=== PATIENT | male | born 1940 | race Caucasian/White ===

== ENCOUNTER → 2020-10-04 11:03 | Outpatient (CLI) | payer MEDICARE, BC, SELFPAY ==
--- NOTE | 2020-10-04 | DI.RAD.S_ITS ---
PROCEDURE: [place] WRIST INJECTION MR/CT RT INDICATIONS: RIGHT WRIST PAIN COMPARISON: [facility] [place], [place], XR WRIST 3+ VIEWS RIGHT, 09/20/2020, 13:58. TECHNIQUE: After informed consent had been obtained, the wrist was examined fluoroscopically, and a site chosen for injection of the radiocarpal compartment from a dorsal approach. Skin was prepped and draped in a sterile fashion and 1% lidocaine infiltrated from the skin down to the articular surface. A hypodermic needle was then introduced into the articular space and a modest amount of contrast medium was instilled confirming intra-articular needle tip placement. This was followed by approximately 4 mL of a dilute gadolinium solution. Needle was removed and dressing was applied. The patient experienced no complications throughout the procedure and left the fluoroscopic suite in no apparent distress. FINDINGS: A single fluoroscopic spot image demonstrates intra-articular location to injected iodinated contrast. IMPRESSION: Successful fluoroscopic-guided administration of dilute Gadolinium solution for wrist MR arthrogram. Dictated by: Jasvir Oh M.D. on 10/04/2020 at 12:37 Approved by: Jasvir Oh M.D. on 10/04/2020 at 12:37
--- NOTE | 2020-10-04 | DI.MRI.S_ITS ---
PROCEDURE: MR WRIST RT W CON INDICATIONS: RIGHT WRIST PAIN TECHNIQUE: After the administration of 3-4 mL of dilute intra-articular Gadolinium contrast into the radiocarpal compartment, coronal T1 spin echo with fat saturation and T2 fast spin echo with fat saturation, axial T1 spin echo and T2 fast spin echo with fat saturation, sagittal T1 spin echo with and without fat saturation through the wrist. COMPARISON: [facility], CR, XR WRIST 3+ VIEWS RIGHT, 05/08/2020, 15:07. [facility], CR, XR WRIST 3+ VIEWS RIGHT, 09/20/2020, 13:58. [facility], [place], [place] WRIST INJECTION MR/CT RT, 10/04/2020, 11:42. FINDINGS: Image quality: Excellent. Bones and cartilage: Widening of the scapholunate interval is seen measuring up to 4 mm. There is mild dorsal tilting of the lunate. No proximal migration of the capitate is seen. There is mild edema within the volar aspect of the triquetrum, which may be related to subacute to chronic trabecular bone injury or chronic pisotriquetral degenerative changes. A type 2 lunate is seen without significant degenerative changes at the hamatolunate articulation. Degenerative subchondral cystic changes are seen at the triscaphe joint. Carpal ligaments: There is complete tearing of the scapholunate ligament including the dorsal and membranous, and likely the volar components. Radiocarpal contrast material is seen extending through the defect into the midcarpal joint. The lunotriquetral ligament appears to be intact. Triangular fibrocartilage complex: There is focal perforation of the central triangle fibrocartilage disc, which is most likely degenerative. Radiocarpal contrast material communicates with the distal radial ulnar joint space. Tendons and soft tissues: The carpal tunnel structures appear normal, including the median nerve. The ulnar nerve appears normal within Guyon's canal. There is moderate extensor carpi ulnaris tendinosis. The remaining extensor tendon compartments demonstrate normal morphology. IMPRESSION: 1. Complete tearing of the scapholunate ligament with widening of the scapholunate interval to 4 mm. 2. 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 No proximal migration of the capitate is seen. 3. Small full-thickness perforation of the triangle fibrocartilage disc, which is most likely degenerative. 4. Moderate extensor carpi ulnaris tendinosis. 5. Mild triscaphe joint osteoarthrosis. Dictated by: Viktor Milligan M.D. on 10/04/2020 at 15:29 Approved by: Viktor Milligan M.D. on 10/04/2020 at 15:37
== END ==
PROVIDERS: PCP Family Medicine; Referring Provider Orthopaedic Surgery; Visit Provider Orthopaedic Surgery
DX: M25.531 Pain in right wrist (principal); S63.591A Other specified sprain of right wrist, initial encounter; M19.031 Primary osteoarthritis, right wrist
CPT/HCPCS: 20605; 73222; 77002

== ENCOUNTER → 2020-10-26 10:10 | Outpatient (CLI) | payer MEDICARE, BC, SELFPAY ==
[2020-10-26 12:18] LABS: COVID19 -Nasal RAPID Negative (Negative)
== END ==
PROVIDERS: PCP Family Medicine; Visit Provider Physician Assistant
DX: Z01.812 Encounter for preprocedural laboratory examination (principal); Z20.822 Contact with and (suspected) exposure to COVID-19
CPT/HCPCS: 87635; C9803

== ENCOUNTER 2020-10-27 08:54 | Day surgery (SDC) | payer MEDICARE, BC, SELFPAY ==
[2020-10-21 11:51] VITALS: BMI 28.8
[2020-10-27] VITALS (8 sets, daily range): BP systolic 103–126; BP diastolic 59–77; PULSE 73–85; RESP 10–16; TEMP 36.3–36.8; O2SAT 97–99; BMI 28.8
[2020-10-27] MEDS: LACTATED RINGERS 1,000 ML 100 ML IV (09:33)
--- NOTE | 2020-10-27 11:32 | PM.PREOP ---
Pre-operative Note Interval Note History & Physical reviewed/Exam performed by Physician: Yes Changes to H&P: No
[2020-10-27] MEDS: CEFAZOLIN 1 GM VIAL 2 GM IV (12:00)
--- NOTE | 2020-10-27 12:09 | SUR.OPER ---
Supine on padded OR bed, head on pillow, left arm secured on padded arm boards at <90 degrees abduction,right arm draped free on black arm table, legs uncrossed, safety belt at thigh, tape over blanket over lower legs.
[2020-10-27] MEDS: BUPIVACAINE 0.25% W/ EPI 30 ML VIAL INJ (12:33)
--- NOTE | 2020-10-27 14:06 | SUR.PHASEI ---
Pt transferred to OPD with handoff to Zeynep NOEL. Pt alert, oriented. Arm elevated. Call light in reach, bed in low position.
--- NOTE | 2020-11-10 07:36 | PM.OP.1 ---
Operative Date/Time/Diagnoses Date of procedure: 10/27/20 Pre-op diagnosis: Right carpal tunnel, right scapholunate ligament rupture Post-op diagnosis: same Procedure & Clinicians Procedure: Right carpal tunnel release, right scapholunate ligament reconstruction Same procedure as scheduled: Yes Indications: Right carpal tunnel, right scapholunate ligament rupture Surgeon: Jordin Partida Click Yes if Unassisted: Yes Anesthesia Type: General Operative Notes Findings: Complete rupture of the scapholunate ligament compression of the median nerve at the carpal tunnel Closure Type: primary Estimated Blood Loss (mL): 5 Procedure in detail: On date of service, patient was met in the holding area where his operative site was signed and witnessed by the OR staff. The surgery is once again discussed with the patient in remaining questions or concerns he had were answered fully. Patient was taken back to the operating theater and placed on the operating table in a supine position. Great care was taken to ensure that all bony prominences were appropriately padded. A well-padded tourniquet was placed up along the upper extremity. Time-out was performed verifying patient's name, procedure, and operative site. The limb was prepped and draped in the normal sterile fashion. An Esmarch was used to exsanguinate the limb the tourniquet was turned up to 250 mm of mercury. Longitudinal incision was made. The incision was ulnar to the Elvin's tubercle. It was centered over the radiocarpal joint. Fifteen blade was used to incise through skin and fascial tissue. Sharp dissection was continued with a 15 blade until the extensor mechanism was identified. Branches of the superficial radial nerve were identified and protected as well as branches coming off ulnarly. Once we had the extensor mechanism identified and was split allowing a release of the EPL tendon. This was also done ulnarly opening up 4th extensor compartment and then done radially opening up the 2nd extensor compartment. This allowed us to retract the extensor tendons. We next took a small strip of tendon tissue from the ECR be which was then whip stitched and then set aside to be used later. Next, the radiocarpal joint was opened preserving the carpal ligaments. This gave us good visualization of the scapholunate interval. There was a complete rupture to the scapholunate ligament. But no sign of any radiocarpal arthritic process. K-wire was placed in to the scaphoid and 1 into the lunate and the scapholunate interval was reduced. There was quite a bit of flexion of the scaphoid which was reduced as well as extension of the lunate. These 2 K-wires were then held together to close down any diastasis. Another K-wire was placed between the scaphoid and the capitate to keep it from falling back into flexion. Next, 3 guidewires were placed 1 in the lunate and 2 in the scaphoid 1 by the scapholunate interval and then 1 very distally. C-arm used to verify reduction of the scapholunate interval as well as guidewire positioning. Once we were satisfied with the positioning cannulated drill was used to drill over the 3 guidewires. The bony hole tunnels were then copiously irrigated removing any remaining tissue. We then turned our attention back to our tendon graft. This plus suture tape was tenodesed into the 1st hole in the scaphoid. Then under tension this was then placed into the 2nd hole into the lunate going across the scapholunate interval 18 OD seen the attendant as well as the graft providing a solid repair of the scapholunate interval. Next, the tendon and suture material were then brought up to the distal hole into the scaphoid and retain noticed there to once again help keep the scaphoid from falling into flexion. C-arm was brought in to verify maintenance of reduction. The 2 reducing K-wires were removed and there was no gapping at the scapholunate interval once those K-wires were removed. We were able to flex and extend the wrist with no abnormal motion of the scapholunate interval been no sign of any diastasis. Good signs of a solid repair of the scapholunate interval. The wound was then copiously irrigated. The capsule was closed and repaired using 3-0 FiberWire. The extensor mechanism was closed with Vicryl recreating the 4th extensor compartment as well as the 3rd and 2nd extensor compartments. We turned our attention to the carpal tunnel. A 15 blade was used to incise through skin In the center of the palm. Pickups and tenotomy scissors were used to dissect down until the palmar fascia was visualized. The palmar fascia was then sharply incised using a 15 blade. This gave us good visualization of the carpal ligament. A small opening was made into the carpal ligament, and a curved hemostat was placed into that opening. A 15 blade was then used to sharply incise the carpal ligament with the structures beneath being protected by the hemostat. Pickups and Metzenbaum scissors were used to complete the decompression both distally and proximally. This provided a complete decompression of the median nerve. The wound was then irrigated and closed with nylon. The hand was then cleaned, dried, and dressed. Patient was taken to the PACU in stable condition. The rest of the wound was closed in layered fashion. Patient's hand and arm was cleaned dried and dressed. Patient was placed into a splint and taken to the PACU in stable condition. Post-operative Condition: stable Disposition: PACU Plan for aftercare: Patient will follow-up postoperative protocol for a scapholunate ligament reconstruction
== END 2020-10-27 14:43 | disposition home or self-care (01) ==
PROVIDERS: PCP Family Medicine; Referring Provider Orthopaedic Surgery; Visit Provider Orthopaedic Surgery
PROC: (CPT 25320; principal; 2020-10-27 10:45)
DX: G56.01 Carpal tunnel syndrome, right upper limb (principal); S63.094A Other dislocation of right wrist and hand, initial encounter; M25.331 Other instability, right wrist; W00.0XXA Fall on same level due to ice and snow, initial encounter; Y92.9 Unspecified place or not applicable
CPT/HCPCS: 25320; 64721; J0690; J1100; J1642; J2405; J2704; J3010